=== PATIENT | female | born 1990 | race Caucasian/White ===

== ENCOUNTER 2018-09-27 21:33 | Emergency (ER) | payer OTHER ==
[~2018-09-27] VITALS: Ht 172.7 cm; Wt 54.9 kg
[~2018-09-27 21:33] MED LIST: ACETAMINOPHEN-1 EAC1 PO; ACIPHEX 20 MG T20 MG PO; LEVAQUIN 500 M500 M2 PO; ONDANSETRON HCL4 M2 PO; PROAIR HFA8.5 GM INH; PROMETHAZINE D480 ML PO; TESSALON PERLE100 MG PO; ZPAK PO
[2018-09-27] MEDS ORDERED: MEDROLDOSEPACK PO (21:56)
[2018-09-27] MEDS ORDERED: ACTICIN 5% CREA60 G1 TOP (21:56)
[2018-09-27 22:20] VITALS: BP 103/65
== END 2018-09-27 22:20 | disposition home or self-care (01) ==
LOC: M.ERS 21:33
DX: B86 Scabies (principal)

== ENCOUNTER 2019-06-03 11:47 | Emergency (ER) | payer OTHER ==
[~2019-06-03] VITALS: Ht 172.7 cm; Wt 57.6 kg
[~2019-06-03 11:47] MED LIST changes: +ACTICIN 5% CREA60 G1 TOP; +MEDROLDOSEPACK PO
[2019-06-03 12:03] LABS: URINE BILIRUBIN NEGATIVE (Negative); URINE BLOOD NEGATIVE (Negative); URINE CLARITY CLEAR; URINE COLOR YELLOW; URINE GLUCOSE-RANDOM NEGATIVE (Negative); URINE KETONES NEGATIVE (Negative); URINE LEUKOCYTES-REFLEX TRACE (Negative); URINE NITRITE-REFLEX NEGATIVE (Negative); URINE PROTEIN NEGATIVE (Negative); URINE SPECIFIC GRAVITY 1.015 (1.005-1.030)
[2019-06-03 12:07] LABS: BACTERIA-REFLEX 1-9 Few /HPF (None Seen); CASTS None Seen /LPF (None Seen); CRYSTALS None Seen /LPF (None Seen); MUCUS 0-3 Light strn/LPF (None Seen); SQUAMOUS 4-10 Moderate /LPF (0-3); URINE RBC 0-2 Rare /HPF (0-2); URINE WBC-REFLEX 6-15 Few /HPF (0-5)
[2019-06-03] MEDS ORDERED: BACTRIM DS TAB1 EACH PO ×2 (12:27)
[2019-06-03 12:37] VITALS: BP 103/58
== END 2019-06-03 12:40 | disposition home or self-care (01) ==
LOC: M.ERS 11:47
PROVIDERS: Nurse Practitioner Family
DX: N30.90 Cystitis, unspecified without hematuria (principal)